=== PATIENT | female | born 1960 | race Caucasian/White ===

== ENCOUNTER 2024-07-16 06:27 | Day surgery (SDC) | payer BC, SELFPAY | END 2024-07-16 14:43 | disposition home or self-care (01) | LOC: GI 06:27 | PROVIDERS: ATTENDING PHYSICIAN Internal Medicine Gastroenterology | DX: D12.2 Benign neoplasm of ascending colon (principal); D12.3 Benign neoplasm of transverse colon; K57.30 Diverticulosis of large intestine without perforation or abscess without bleeding; K64.8 Other hemorrhoids; K64.4 Residual hemorrhoidal skin tags; R19.5 Other fecal abnormalities | CPT/HCPCS: 45385; 45380; 88305 ==